=== PATIENT | female | born 1960 | race African-American/Black ===

== ENCOUNTER 2025-03-16 09:31 | Emergency (ER) | payer OTHER, MEDICAID ==
[~2025-03-16] VITALS: Ht 167.6 cm; Wt 80.0 kg
[2025-03-16 09:42] VITALS: O2SAT 100
[2025-03-16] MEDS: METHOCARBAMOL 500MG TABLET PO ONE (11:23)
[2025-03-16] MEDS: IBUPROFEN 600MG TABLET PO ONE (11:23)
[2025-03-16] MEDS: LIDOCAINE 5% PATCH TOP SCH (11:24)
[2025-03-16] MEDS ORDERED: LIDO700A30 TP (11:46)
[2025-03-16] MEDS ORDERED: IBUP-1455 MT (11:46)
[2025-03-16] MEDS ORDERED: METH-653 MT (11:46)
[2025-03-16 11:51] VITALS: BP 160/78; PULSE 75; RESP 17; TEMP 36.6; O2SAT 100
== END 2025-03-16 12:23 | disposition home or self-care (01) ==
LOC: ER 09:31
DX: S33.5XXA Sprain of ligaments of lumbar spine, initial encounter (principal); J45.909 Unspecified asthma, uncomplicated; W19.XXXA Unspecified fall, initial encounter; Y93.89 Activity, other specified; Y92.89 Other specified places as the place of occurrence of the external cause; Y99.8 Other external cause status
CPT/HCPCS: 72100; 99284